=== PATIENT | female | born 1950 | race Caucasian/White ===

== ENCOUNTER 2016-11-18 12:43 | Inpatient (IN) | payer MEDICARE, OTHER ==
[~2016-11-18 12:43] MED LIST: ACYCLOVIR200 M1 PO; ALLERGY EYE RELIEF EACH EYE; AMITRIPTYLINE H25 M1 PO; ASPIR-TRIN325 M2 PO; CELEBREX200 M1 PO; EYE DROPS15 M3 OP; JOINT TOP; LOVENOX40 MG/0.1 SC; MILK OF MAGNESIA PO; MULTIVITAMIN; OSTEO MATRIX PO; OSTEOMATRIX PO; PROTONIX40 M2 PO; SENOKOT-S TABL1 EACH PO; SIMVASTATIN20 M1 PO; SINUS DECONGEST10 MG PO; STOOL SOFTENER1 EAC4 PO; STOOL SOFTENER100 M3 PO; SUDAFED PO; TRIAMCINOLONE A15 G3 TP; [UNRECOGNIZED DRUG - OTHER] TOP
[2016-11-18 16:38] LABS: HCT-HEMATOCRIT 32.7 % (34.0-49.0); MCV (MEAN CELL VOLUME) 74.7 fl (82.0-96.0); RED CELL DISTRIBUTION WIDTH 19.1 % (12.4-16.4)
[2016-11-19 06:21] LABS: BASO % 0.1 % (0-2); EOS % 1.4 % (0-7); EOSINOPHIL ABSOLUTE COUNT 0.1 tho/cmm (0.0-0.7); HCT-HEMATOCRIT 27.9 % (34.0-49.0); HGB-HEMOGLOBIN 8.5 gm/dl (12.0-15.5); IMMATURE GRANULOCYTES ABSOLUTE 0.02 tho/cmm (0-0.03); IMMATURE GRANULOCYTES PERCENT 0.2 % (0-0.3); LYMPH % 12.9 % (20-45); LYMPH ABSOLUTE COUNT 1.3 tho/cmm (0.8-4.5); MCH (MEAN CORPUSCULAR HGB) 22.9 pg (28.0-32.0); MCHC MEAN CORPUSCULAR HGB CONC 30.5 % (32.0-36.0); MCV (MEAN CELL VOLUME) 75.2 fl (82.0-96.0); MONO % 10.9 % (0-12); MONOCYTE ABSOLUTE COUNT 1.1 tho/cmm (0.0-1.2); NEUTROPHIL ABSOLUTE COUNT 7.2 tho/cmm (1.6-8.0); NEUTROPHIL-AUTOMATED 7.2 tho/cmm (1.6-8.0); NEUTROPHILS % 74.5 % (40-80); PLATELET COUNT 209 tho/cmm (150-450); RED BLOOD COUNT 3.71 mil/cmm (4.00-5.20); RED CELL DISTRIBUTION WIDTH 19.1 % (12.4-16.4); WHITE BLOOD COUNT 9.7 tho/cmm (4.0-10.0)
[2016-11-19 11:10] LABS: ANION GAP 12 mmol/L (0-20); BLOOD UREA NITROGEN 10 mg/dl (6-24); CARBON DIOXIDE-VENOUS 26 mmol/L (22-32); CHLORIDE 104 mmol/l (96-110); CREATININE 0.83 mg/dl (0.50-1.10); GLUCOSE 116 mg/dL (70-110); POTASSIUM 3.7 mmol/L (3.7-5.1); SODIUM 138 mmol/L (135-145); eGFR VALUE FOR BLACK 85 mL/Min
[2016-11-20 05:45] LABS: BASO % 0.1 % (0-2); EOS % 5.4 % (0-7); EOSINOPHIL ABSOLUTE COUNT 0.4 tho/cmm (0.0-0.7); HCT-HEMATOCRIT 28.9 % (34.0-49.0); IMMATURE GRANULOCYTES ABSOLUTE 0.01 tho/cmm (0-0.03); IMMATURE GRANULOCYTES PERCENT 0.1 % (0-0.3); LYMPH % 16.5 % (20-45); LYMPH ABSOLUTE COUNT 1.3 tho/cmm (0.8-4.5); MCH (MEAN CORPUSCULAR HGB) 23.6 pg (28.0-32.0); MCHC MEAN CORPUSCULAR HGB CONC 31.1 % (32.0-36.0); MCV (MEAN CELL VOLUME) 75.7 fl (82.0-96.0); MEAN PLATELET VOLUME 9.6 cmc (9.4-12.4); MONO % 13.7 % (0-12); NEUTROPHIL ABSOLUTE COUNT 4.9 tho/cmm (1.6-8.0); NEUTROPHIL-AUTOMATED 4.9 tho/cmm (1.6-8.0); NEUTROPHILS % 64.2 % (40-80); PLATELET COUNT 204 tho/cmm (150-450); RED BLOOD COUNT 3.82 mil/cmm (4.00-5.20); RED CELL DISTRIBUTION WIDTH 18.8 % (12.4-16.4); WHITE BLOOD COUNT 7.6 tho/cmm (4.0-10.0)
[2016-11-20] MEDS ORDERED: ULTRAM50 M1 PO (13:26)
[2016-11-20] MEDS ORDERED: ROXICODONE5 M2 PO (13:31)
[2016-11-20] MEDS ORDERED: TYLENOL325 M2 PO (13:33)
[2016-11-20] MEDS ORDERED: ASPIRIN325 M3 PO (13:34)
[2016-11-20] MEDS ORDERED: MOBIC7.5 M2 PO (13:36)
== END 2016-11-20 15:10 | DRG 467 ==
LOC: SHSB 12:43 → SHSC 13:08 → ORE 14:07 → PACU 16:20 → 5EA 17:10
PROVIDERS: Family Medicine; Physician Assistant Surgical; ADMIT Orthopaedic Surgery Foot and Ankle Surgery
DX: T84.030A Mechanical loosening of internal right hip prosthetic joint, initial encounter (principal); D62 Acute posthemorrhagic anemia; M81.0 Age-related osteoporosis without current pathological fracture; E78.00 Pure hypercholesterolemia, unspecified; R55 Syncope and collapse; Z79.82 Long term (current) use of aspirin; Z86.73 Personal history of transient ischemic attack (TIA), and cerebral infarction without residual deficits; Z86.010 Personal history of colon polyps
CPT/HCPCS: J0171; J0690; J1885; J2270; J2405; J2795; J7030; J7050; P9016